=== PATIENT | female | born 1955 | race Caucasian/White ===

== ENCOUNTER 2023-04-17 04:22 | Day surgery (SDC) | payer OTHER ==
[2023-04-15 10:56] VITALS: BMI 18.7
[2023-04-17] MEDS ORDERED: MIDAZOLAM HCL 2 MG/2 ML SINGLE DOSE VIAL ONE (14:07)
[2023-04-17] MEDS ORDERED: DEXTROSE 5%-0.45% SALINE 1,000 ML IV SCH (15:00)
[2023-04-17] MEDS: ceFAZolin SODIUM 1 GM VIAL IVPB ONE (15:14)
[2023-04-17] MEDS ORDERED: PROMETHAZINE HCL 25 MG/1 ML VIAL IVPB PRN (15:49)
[2023-04-17] MEDS ORDERED: oxyCODONE HCL 5 MG TABLET PO PRN (15:49)
[2023-04-17] MEDS ORDERED: LABETALOL HCL 5 MG/1 ML (100MG/20 ML VIAL) ONE (15:54)
[2023-04-17] MEDS: LABETALOL HCL 5 MG/1 ML (100MG/20 ML VIAL) IVPUSH ONE (15:58)
[2023-04-17] MEDS ORDERED: LACTATED RINGERS SOLUTION 1,000 ML IV SCH (16:00)
[2023-04-17] MEDS ORDERED: ACETAMINOPHEN INJECTION 100 ML IVPB ONE (16:07)
[2023-04-17] MEDS: ACETAMINOPHEN 1000 MG/100 ML BAG IVPB ONE (16:37)
[2023-04-17] MEDS ORDERED: IBUPROFEN 800 MG/8 ML IJ IVPB ONE (16:40)
[2023-04-17] MEDS: IBUPROFEN 800 MG/8 ML IJ IVPB SCH (16:40)
[2023-04-17 17:54] VITALS: RESP 20; TEMP 97.3
[2023-04-17 17:57] VITALS: BP 143/71; PULSE 70
== END 2023-04-17 18:01 | disposition home or self-care (01) ==
LOC: JASU-SURG 04:22
PROVIDERS: ATTEND Urology
PROC: 0TSD0ZZ Reposition Urethra, Open Approach (ICD-10-PCS; principal; 2023-04-17 14:30)
PROC: 0TVD8ZZ Restriction of Urethra, Via Natural or Artificial Opening Endoscopic (ICD-10-PCS; 2023-04-17 14:30)
DX: T83.89XA Other specified complication of genitourinary prosthetic devices, implants and grafts, initial encounter (principal); N39.3 Stress incontinence (female) (male)
CPT/HCPCS: 51715; 57287; L8606; 88300-TC; 94760; J0131

== ENCOUNTER 2023-09-07 04:13 | Day surgery (SDC) | payer OTHER ==
[2023-09-04 13:36] VITALS: BMI 18.2
[~2023-09-07 04:13] MED LIST: LACTATED RINGERS SOLUTION 1,000 ML IV SCH; ONDANSETRON 4 MG/2 ML VIAL IVPUSH PRN; oxyCODONE HCL 5 MG TABLET PO PRN
[2023-09-07] MEDS ORDERED: DEXTROSE 5%-0.45% SALINE 1,000 ML IV SCH (09:15)
[2023-09-07] MEDS ORDERED: DEXAMETHASONE SOD PHOSPHATE 4 MG/1 ML VIAL ONE (09:27)
[2023-09-07] MEDS ORDERED: KETOROLAC TROMETHAMINE 30 MG/1 ML VIAL ONE (09:27)
[2023-09-07] MEDS ORDERED: LIDOCAINE HCL/PF 2% SDV 5ML VIAL ONE (09:27)
[2023-09-07] MEDS ORDERED: ceFAZolin SODIUM 1 GM VIAL ONE (09:27)
[2023-09-07] MEDS ORDERED: ONDANSETRON 4 MG/2 ML VIAL ONE (09:27)
[2023-09-07] MEDS ORDERED: MIDAZOLAM HCL 2 MG/2 ML SINGLE DOSE VIAL ONE (09:28)
[2023-09-07] MEDS: ceFAZolin SODIUM 1 GM VIAL IVPB ONE (10:05)
[2023-09-07 11:03] VITALS: PULSE 72
[2023-09-07 12:00] VITALS: RESP 20
[2023-09-07 14:21] VITALS: BP 160/85; TEMP 98
== END 2023-09-07 13:35 | disposition home or self-care (01) ==
LOC: JASU-SURG 04:13
PROVIDERS: ATTEND Urology
PROC: 0TVD8ZZ Restriction of Urethra, Via Natural or Artificial Opening Endoscopic (ICD-10-PCS; principal; 2023-09-07 10:00)
DX: N36.43 Combined hypermobility of urethra and intrinsic sphincter deficiency (principal); N39.3 Stress incontinence (female) (male)
CPT/HCPCS: 51715; L8606; 94760